=== PATIENT | male | born 1985 | race Caucasian/White ===

== ENCOUNTER 2021-07-16 16:32 | Emergency (ER) | payer MEDICAID, SELFPAY ==
[2021-07-16 16:36] VITALS: BP 126/81; PULSE 108; RESP 20; TEMP 36.9; O2SAT 93
[2021-07-16 17:56] VITALS: BP 126/81; PULSE 98; RESP 20; TEMP 36.9; O2SAT 95; BMI 28.2
--- NOTE | 2021-07-16 17:59 | ED_ITS ---
HPI - Dental/Oral General Stated complaint: dental infection Time Seen by Provider: 07/16/21 17:57 Source: patient Mode of arrival: ambulatory Limitations: no limitations History of Present Illness HPI Narrative: 36-year-old male came in for evaluation of dental pain for the past 3 4 days. Patient broke his left lower 3rd molar tooth while chewing, no fever, or chills. No facial swelling. Related Data Previous Rx's Medication Instructions Recorded amoxicillin 500 mg tablet 500 mg PO BID #14 tab 07/16/21 Allergies Allergy/AdvReac Type Severity Reaction Status Date / Time No Known Allergies Allergy Unverified 05/23/20 16:08 [No Known Allergies*] Review of Systems Review of Systems: All other systems are reviewed and are negative Constitutional: Reports as per HPI and Reports no additional constitutional complaints Eyes: Reports as per HPI and Reports no additional eye complaints Reports system reviewed and no additional complaints, except as documented Cardiovascular: Reports as per HPI and Reports no additional cardiovascular complaints Respiratory: Reports as per HPI and Reports no additional respiratory complaints Gastrointestinal: Reports as per HPI and Reports no additional gastrointestinal complaints Genitourinary: Reports no additional female genitourinary complaints Musculoskeletal: Reports no additional musculoskeletal complaints Skin/Breast: Reports system reviewed and no additional complaints, except as docu Psychiatric: Reports no additional psychiatric complaints Endocrine: Reports no additional endocrine complaints Hematologic/Lymphatic: Reports no additional hematologic/lymphatic complaints Allergic/Immunologic: Reports no additional allergic/immunologic complaints Reports system reviewed and no additional complaints, except as documented and Reports Abnormal speech present [facility] Past Medical History Medical History No known health problems Physical Exam Vital Signs: Vital Signs: Last Vital Signs Temp 98.4 F 07/16/21 16:36 Pulse 108 H 07/16/21 16:36 Resp 20 07/16/21 16:36 BP 126/81 07/16/21 16:36 Pulse Ox 93 07/16/21 16:36 Vital signs have been reviewed as appeared to be correct. Blood pressure normal. Heart rate normal. Respiration rate normal. Temperature normal. Oxygen saturation normal. Appearance: Alert. Oriented X3. No acute distress. Head: Normal external exam. Normocephalic. Atraumatic. No Perez signs noted. No raccoon eyes noted. Mouth and dental exam: Tenderness over left lower 3rd molar tooth, gum around it with no fluctuation or abscess, no facial swelling. Eyes: PERRLA. EOMI. Conjunctiva and sclera normal. Eyelids normal. ENT: TM's Normal. Pharynx normal. Uvula midline. Moist mucous membranes. No trismus noted. No drooling noted. No muffled voice noted. Neck: Normal inspection. Neck supple. FROM. No adenopathy. Thyroid Normal. No meningeal signs. No neck mass noted. CVS: Normal heart rate and rhythm. Heart sound normal. No murmurs noted. Pulses normal throughout. Respiratory: No respiratory distress. Painless inspiration. Breath sounds normal. No wheezes/rales/rhonchi noted. Chest nontender. No accessory muscle usage noted or decreased air movement noted. Abdomen: Soft and nontender. Bowel sounds normal in all 4 quadrants. No distention noted. No organomegaly noted. No visible injury noted. Back: No CVA tenderness. Full range of motion noted. Skin: Skin warm and dry. Normal skin color. Normal skin turgor. No rashes/lesions/lacerations noted. Extremities: No lower extremity edema. Extremities exhibit normal range of motion. Extremities nontender. Neuro: Oriented X 3. Cranial nerve exam: II-XII are grossly intact No motor deficit. No sensory deficit. Reflexes normal. Course Course Course Narrative: Assessment and plan. Dental infection was started on amoxicillin and follow-up with dentist use NSAIDs p.r.n. pain. Discharge Plan Discharge Clinical Impression: Dental infection Patient Disposition: Home, Self-Care Instructions: Toothache (ED) Additional Instructions: Follow-up with your dentist in 5-7 days. Prescriptions: New amoxicillin 500 mg tablet 500 mg PO BID Qty: 14 RF: 0 Referrals: Physician,None [Primary Care Provider] - 2 days
== END 2021-07-16 18:29 | disposition home or self-care (01) ==
LOC: HO.ED 18:13
PROVIDERS: Emergency Provider Emergency Medicine
DX: K04.7 Periapical abscess without sinus (principal)
CPT/HCPCS: 99283

== ENCOUNTER 2023-08-06 12:02 | Emergency (ER) | payer OTHER, SELFPAY ==
--- NOTE | ~2023-08-06 | XR_ITS ---
EXAMINATION: XR WRIST, LEFT XR HAND, LEFT CLINICAL INFORMATION: Pain and fall. COMPARISON: None available. TECHNIQUE: PA, lateral, and oblique views of the left wrist and PA, lateral, and oblique views of the left hand FINDINGS: LEFT WRIST: The bones and soft tissues are normal. No fracture. Alignment is anatomic. Joint spaces are maintained. No erosions or soft tissue calcifications. LEFT HAND: The bones and soft tissues are normal. No fracture. Alignment is anatomic. Joint spaces are maintained. No erosions or soft tissue calcifications. XR/XR hand wrist LT IMPRESSION: Normal left hand and wrist.
[2023-08-06 12:44] VITALS: BP 125/82; PULSE 82; RESP 16; TEMP 36.6; O2SAT 96; BMI 28.2
--- NOTE | 2023-08-06 12:44 | ED.UPPEXIN ---
HPI - Extremity Injury (Upper) General Chief Complaint: Extremity Injury, Upper Stated Complaint: L broken hand? Time Seen by Provider: 08/06/23 14:50 Source: patient Mode of arrival: ambulatory Limitations: no limitations History of Present Illness HPI narrative: 38-year-old male who presents emergency department for evaluation of injury to his left hand and wrist after falling down stairs 2 days prior. Patient states that his left hand wrist is swollen and painful to movement. Patient has been taking ibuprofen with some relief for the pain. He was concerned about the significant swelling and pain therefore came to emergency department for evaluation. Related Data Previous Rx's Medication Instructions Recorded amoxicillin 500 mg tablet 500 mg PO BID #14 tabs 07/16/21 Allergies Allergy/AdvReac Type Severity Reaction Status Date / Time No Known Allergies Allergy Unverified 05/23/20 16:08 [No Known Allergies*] Review of Systems Review of Systems: Yes all other systems are reviewed and are negative PMFSH Past Medical History Medical History No known health problems Social History Social History Advance Directives: No Advance Directives Information Provided: No Physical Exam Vital Signs: Vital Signs: Last Vital Signs Temp 98 F 08/06/23 12:44 Pulse 82 08/06/23 12:44 Resp 16 08/06/23 12:44 BP 125/82 08/06/23 12:44 Pulse Ox 96 08/06/23 12:44 O2 Del Method Room Air 08/06/23 12:44 BMI result Body Mass Index 28.2 Vital signs were normal Exam: General: Awake, alert in no distress Extremities: Left hand and wrist: Soft tissue swelling the hand and wrist with localized tenderness with palpation over the navicular bone with increased pain with ulnar flexion of the wrist, no significant tenderness palpation of the hands or fingers, no skin breakdown, hand and wrist are neurovascular intact Psych: Pleasant, cooperative Course Course Course Narrative: This is an RME: Additional HPI, ROS, PE not included below will be deferred to primary provider. Patient is a 38-year-old male who is right-hand dominant who presents emergency department for evaluation of left hand and wrist pain s/p fall on the stairs 3 days ago. Denies numbness tingling or cold sensation to the hand. Localized swelling. Plan: XR Medical Decision Making Medical Decision Making MDM Narrative: 38-year-old male with no significant past medical history who fell down stairs 2 days prior injuring his left hand and wrist who presents with persistent pain to the wrist and hand with increased pain with movement of the wrist. Exam did reveal tenderness palpation over the anatomic snuffbox an area of the navicular bone with increased pain with lateral/ulnar stress of the wrist and flexion of the wrist. There is no skin breakdown and no significant tenderness palpation over the hand and fingers. X-rays were obtained and there was no acute fracture noted on my interpretation of the hand and wrist x-rays in this correlates with the radiologist reading. Given the patient's tenderness with palpation over the navicular bone, patient was placed in a thumb spica splint and advised to follow-up with orthopedics within 1 week for re-evaluation to make sure that there is no occult navicular bone fracture. Patient was advised to take Tylenol and ibuprofen for pain, keep his wrist and hand elevated and apply ice. Differential Diagnosis Differential Diagnoses: The differential diagnosis associated with the presentation includes Differential diagnosis includes was not limited to wrist fracture, hand fracture, forearm fracture, finger fracture, contusions Independent Interpretation I performed an independent interpretation of an: Plain X-Ray Interpretation: My independent interpretation of the patient's hand and wrist x-rays are as follows: No acute fracture seen Radiology Impression Discussion of test interpretation with radiology: I have reviewed the radiologist's reading. Radiologist Impression: XR hand wrist LT IMPRESSION: Normal left hand and wrist. Dictated By: Remigio Azevedo MD Discharge Plan Discharge Clinical Impression: Sprain and strain of left wrist Fall Qualifiers: Encounter type: initial encounter Qualified Code(s): W19.XXXA - Unspecified fall, initial encounter Patient Disposition: Home, Self-Care Instructions: Wrist Sprain (ED) Additional Instructions: Your x-ray of your hand and wrist did not reveal any broken bones/fractures Your exam however is concerning since you are tender over the anatomic snuffbox in the area of the navicular bone of the wrist. This is the most commonly broken bone in the wrist and sometimes you can have a hairline fracture that cannot be detected on the initial x-ray therefore is very important that you follow-up with the orthopedic doctors for re-evaluation to make sure that there is not a missed fracture on the x-ray. Call the orthopedic office on Wednesday morning and let them know that you need to be evaluated for possible navicular bone fracture. Hopefully, they can see you sometime next week to re-evaluate you. Keep the thumb spica splint on until you are seen by the orthopedic doctors. Apply ice for 10-15 minutes 4 to 6 times a day to help reduce the pain and swelling. Take ibuprofen 200 mg pills, 2 pills every 6 hours as needed for pain or fever. Take Tylenol (acetaminophen) 500 mg pills, 2 pills every 6 hours as needed for pain or fever. Follow-up with your doctor in 2 days. Please return to the emergency department if your symptoms get worse or if you develop any symptoms that are concerning to you. Prescriptions: No Action amoxicillin 500 mg tablet 500 mg PO BID Qty: 14 0RF Referrals: Arielle Hauser MD [Physician] - 5 days (Fall, left hand and wrist injury, negative x-rays but tender over navicular area, rule out occult fracture)
== END 2023-08-06 15:30 | disposition home or self-care (01) ==
PROVIDERS: Emergency Provider Emergency Medicine Emergency Medical Services
DX: S63.502A Unspecified sprain of left wrist, initial encounter (principal); M25.532 Pain in left wrist; Y29.XXXA Contact with blunt object, undetermined intent, initial encounter; Y93.9 Activity, unspecified; Y92.9 Unspecified place or not applicable; Y99.9 Unspecified external cause status
CPT/HCPCS: 73110; 73130; 99282; 99283

== ENCOUNTER 2023-08-16 06:25 | Outpatient (REF) | payer OTHER, SELFPAY ==
--- NOTE | ~2023-08-16 | XR_ITS ---
EXAMINATION: XR wrist LT w scaphoid CLINICAL INFORMATION: Reason for Exam M25.532 - Pain in left wrist COMPARISON: None. TECHNIQUE: Four views of the wrist FINDINGS: No acute fracture or dislocation. Joint spaces are maintained without significant degenerative change. Soft tissue swelling about the wrist. XR/XR wrist LT w scaphoid IMPRESSION: 1. No acute fracture or dislocation. 2. Soft tissue swelling about the wrist.
== END 2023-08-16 06:26 | disposition home or self-care (01) ==
LOC: HO.HOSX 06:25
PROVIDERS: Visit Provider Physician Assistant
DX: S52.502A Unspecified fracture of the lower end of left radius, initial encounter for closed fracture (principal); W10.9XXA Fall (on) (from) unspecified stairs and steps, initial encounter; Y93.9 Activity, unspecified; Y92.9 Unspecified place or not applicable; Y99.9 Unspecified external cause status
CPT/HCPCS: 25600; 73110; 99202

== ENCOUNTER 2023-08-16 09:00 | Outpatient (AMB) | payer OTHER, SELFPAY ==
[2023-08-16 09:04] VITALS: BMI 28.2
--- NOTE | 2023-08-16 09:04 | A.OFFVIS_ITS ---
Intake Vital Signs 08/16/23 09:04 Height 5 ft 6 in Weight 175 lb BMI 28.2 Intake Visit Reasons: FC poss navicular bone fracture/ER follow up Intake Note: Arash a 38 year old right hand dominant male presents today for an ER follow up of left hand injury. Patient reports left hand and wrist pain after falling down stairs landing with his hand bent backwards. He presented to [facility] ED 2-3 days later where xrays were taken and placed in a splint. Currently his swelling has improved however continues to have throbbing, shooting pains with movement of his hand. Limited ROM. Allergies No Known Allergies [No Known Allergies*] Allergy (Unverified 08/16/23 09:09) Medication List - Last Reconciled 08/16/23 by Gretta Agosto PA-C No Known Home Meds HPI FC poss navicular bone fracture/ER follow up HPI Details 38-year-old right hand dominant male who presents to the office today for an ER follow-up of left-hand injury s/p falling downstairs landing with his hand bent backwards. He was seen at ED about 2 days later where x-rays were performed and he was placed in a splint. He currently states he has throbbing shooting pain in his hand with movement. He also c/o limited ROM and swelling in his hand which is currently improved. He experiences difficulty with touching his thumb to small finger. 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 [facility] Medical History (Updated 08/16/23 @ 09:44 by Gretta Agosto PA-C) No known health problems Surgical History (Updated 08/16/23 @ 09:09 by BETO Stone) Hx of appendectomy Social History (Updated 08/16/23 @ 09:10 by BETO Stone) Patient Tobacco Use Status: Never used Tobacco Current occupational status: unemployed Current occupation: right hand dominant Review of Systems Const All systems reviewed & are unremarkable except as noted in HPI and below Physical Exam Vital Signs: BMI result Body Mass Index 28.2 Const General: cooperative and no acute distress Orientation/consciousness: patient oriented x3 Resp Effort & Inspection: normal respiratory effort and able to speak in complete sentences Cardio Peripheral pulses: Peripheral pulses 2+ throughout Neuro General: patient oriented x3 Extrem Other: Left wrist: Skin intact. There is mild swelling over the distal radius with tenderness over the fracture site. There is no pain over the elbow, negative forearm squeeze test. He has full range of motion of the elbow. He can fully extend all digits and make a closed fist. Pulses are present and she is neurovascularly intact. Office Procedures Casting/Splints 34290-Srno/Wrist Cast Application Procedure code (CPT) selection complete Fracture Care Fracture Billing Code: Fracture Billing Code Results Reviewed Results Reviewed: Xrays were obtained in the office today and personally reviewed by me of the left wrist show subtle distal radius fracture without intraarticular extension or displacement. Assessment & Plan Assessment & Plan (1) Distal radius fracture, left: Code(s): S52.502A - Unspecified fracture of the lower end of left radius, initial encounter for closed fracture Qualifiers: Encounter type: initial encounter Fracture type: closed Fracture morphology: unspecified fracture morphology Qualified Code(s): S52.502A - Unspecified fracture of the lower end of left radius, initial encounter for closed fracture Plan I explained to the patient the extent of the injury and options available. We will treat this conservatively with a cast, which he was placed in today. He will perform no lifting more than a cell phone. This would mean no lifting, carrying, pushing, pulling, or repetitive use of the left upper extremity at work/home. I also educated him on the risk factors of smoking and the effect that it can have on bone healing. He does understand all this and will see me back in 6 weeks with cast off and new xrays. Sooner if needed. Orders: Orders XR wrist LT w scaphoid Today M25.532 - Pain in left wrist Patient Instructions: Scribed for Gretta Agosto PA-C, by Isra Chavez medical laboratory technicians, on 08/16/2023 at 9:00 AM EST. I, Gretta Agosto PA-C, have personally reviewed and agree with the information entered by the scribe. Coding Level of Care Code New Pt Level 3 (07421) Diagnoses Closed fracture of distal end of left radius, unspecified fracture morphology, initial encounter S52.502A Encounter type: initial encounter Fracture type: closed Fracture morphology: unspecified fracture morphology CPT Codes Casting - CPT: 78631-Jlgy/Wrist Cast Application ([id number]) Fracture Care - Fracture Billing Code: Fracture Billing Code ([id number])
== END 2023-08-16 10:08 | disposition home or self-care (01) ==
PROVIDERS: Visit Provider Physician Assistant
DX: S52.502A Unspecified fracture of the lower end of left radius, initial encounter for closed fracture (principal); W10.8XXA Fall (on) (from) other stairs and steps, initial encounter
CPT/HCPCS: 25600; 99203

== ENCOUNTER 2023-09-27 08:19 | Outpatient (REF) | payer OTHER, SELFPAY ==
--- NOTE | ~2023-09-27 | XR_ITS ---
EXAMINATION: XR WRIST, LEFT CLINICAL INFORMATION: Pain in left wrist COMPARISON: Left wrist 08/16/2023 TECHNIQUE: PA, lateral, and oblique views of the left wrist. FINDINGS: Interval marked decrease in dorsal soft tissue swelling over the distal forearm and wrist. No displaced fracture. Alignment is anatomic with normal joint spaces. No erosions or abnormal soft tissue calcifications. XR/XR wrist LT min 3V IMPRESSION: Interval marked decrease in dorsal soft tissue swelling.
== END 2023-09-27 08:20 | disposition home or self-care (01) ==
LOC: HO.HOSX 08:19
PROVIDERS: Visit Provider Physician Assistant
DX: M25.532 Pain in left wrist (principal); M79.646 Pain in unspecified finger(s); S52.502D Unspecified fracture of the lower end of left radius, subsequent encounter for closed fracture with routine healing; X58.XXXD Exposure to other specified factors, subsequent encounter
CPT/HCPCS: 73110; 99212

== ENCOUNTER 2023-09-27 09:48 | Outpatient (AMB) | payer OTHER, SELFPAY ==
[2023-09-27 10:03] VITALS: BMI 28.2
--- NOTE | 2023-09-27 10:03 | MHC.OFFVIS ---
Intake Vital Signs 09/27/23 10:03 Height 5 ft 6 in Weight 175 lb BMI 28.2 Intake Visit Reasons: O/V left distal Rad approx 08/08/23 / cast off Intake Note: Arash jeffrey 38 year old right hand dominant male presents today for a follow up of left distal radius fx, DOI . Cast off and x-rays updated. Patient reports he is doing well but he notices his fingers are swollen due to him jamming his fingers yesterday. He states that he is a bit stiff. Denies numbness and tingling. Allergies No Known Allergies [No Known Allergies*] Allergy (Verified 09/27/23 10:06) HPI O/V left distal Rad approx 08/08/23 / cast off HPI Details 38-year-old right hand dominant male who returns to the office today for a follow-up of left distal radius fracture, 08/08/23. He reports he swelling in all of his digits as well as pain in his 3rd and 4th digits due to jamming his finger yesterday. He also c/o mild stiffness in his hand. He denies any numbness or tingling. He is currently out of work. [facility] Medical History (Updated 08/16/23 @ 09:44 by Gretta Agosto PA-C) No known health problems Surgical History (Updated 08/16/23 @ 09:09 by BETO Stone) Hx of appendectomy Social History Patient Tobacco Use Status: Never used Tobacco Current occupational status: unemployed Current occupation: right hand dominant Review of Systems Const All systems reviewed & are unremarkable except as noted in HPI and below Physical Exam Vital Signs: BMI result Body Mass Index 28.2 Extrem Other: Left wrist: Normal to inspection. He has mild tenderness to palpation over the distal radius. Wrist extension is lacking 5 degrees when compared to contralateral side. Wrist extension to 85 degrees, wrist flexion to 85 degrees. Full supination and pronation without pain. NVI. Results Reviewed Results Reviewed: X-rays of the left wrist obtained in the office today show a stable distal radius fracture. No clear evidence of callous formation. Assessment & Plan Assessment & Plan (1) Distal radius fracture, left: Code(s): S52.502A - Unspecified fracture of the lower end of left radius, initial encounter for closed fracture Qualifiers: Encounter type: initial encounter Fracture morphology: unspecified fracture morphology Fracture type: closed Qualified Code(s): S52.502A - Unspecified fracture of the lower end of left radius, initial encounter for closed fracture Plan In the absence of pain, he was transitioned into a a Velcro wrist splint which he will wear with activities only. He can remove for hygiene, exercises and non-impact activities. He is going to snowboarding later today and I advised to avoid it as it could potentially reinjure his wrist as it is not fully healed. He does express understanding and I would like to see him back in 4-6 weeks with new x-rays, sooner if needed. Orders: Orders OT Evaluation and Treatment Today S52.502A - Unspecified fracture of the lower end of left radius, initial encounter for closed fracture XR wrist LT min 3V Today M25.532 - Pain in left wrist Patient Instructions: Scribed for Gretta Agosto PA-C, by Isra Chavez medical technician assistant, on 09/27/2023 at 9:45 AM EST. I, Gretta Agosto PA-C, have personally reviewed and agree with the information entered by the scribe. Coding Level of Care Code Global (79687) Diagnoses Closed fracture of distal end of left radius, unspecified fracture morphology, initial encounter S52.502A Encounter type: initial encounter Fracture morphology: unspecified fracture morphology Fracture type: closed
== END 2023-09-27 10:44 | disposition home or self-care (01) ==
PROVIDERS: Visit Provider Physician Assistant
DX: S52.502A Unspecified fracture of the lower end of left radius, initial encounter for closed fracture (principal)
CPT/HCPCS: 99024

== ENCOUNTER 2023-11-08 15:52 | Outpatient (REF) | payer OTHER, SELFPAY | END 2023-11-08 15:53 | disposition home or self-care (01) | LOC: HO.HOSX 15:52 | PROVIDERS: Visit Provider Physician Assistant | DX: Z13.89 Encounter for screening for other disorder (principal) ==